=== PATIENT | female | born 1975 | race Caucasian/White ===

== ENCOUNTER 2017-02-01 14:31 | Emergency (ER) | payer MEDICAID, OTHER ==
[2017-02-01 14:39] VITALS: TEMP 97.7
[2017-02-01] MEDS ORDERED: traMADol 50 MG TAB PO ONE (14:55)
[2017-02-01] MEDS ORDERED: NS 1,000 ML IV ONE (14:55)
--- NOTE | 2017-02-01 15:06 | EDPHY ---
H & P Time Seen by Provider: 02/01/17 14:46 HPI/ROS: HPI: Lyla Mayen is a 41 yrs, female who presents with Chief Complaint: rectal bleeding Location: rectal Quality: bleeding Duration: starting at 0900 Signs and Symptoms: no fever, no chills, no N/V, no recent antibiotic usage, no concern for food born illness, + mild cramping bilateral lower abdominal pain, no hemorrhoids, no anorexia, no vaginal bleeding, no dysuria Timing: sudden, intermittent, ahs occurred 3 times total since 0900; last bloody stool occurrence at 1400 Severity: moderate Context: generally healthy. s/p . on depo-provera; last injection beginning of January. takes ibuprofen 800 mg TID for chronic knee pain. mother has history of diverticulitis. Modifying Factors: did not call PCP REVIEW OF SYSTEMS: Constitutional: No fever Eyes: No blurred vision Respiratory: No shortness of breath, no cough Cardiovascular: No chest pain Gastrointestinal: No nausea, no vomiting, + diarrhea Genitourinary: No dysuria Extremities: No myalgias Neurologic: No weakness, no numbness Skin: No rashes Hematologic: No bruising, + bleeding MEDICAL HISTORY: generally healthy SURGICAL HISTORY Smoking Status: Never smoked Physical Exam: CONSTITUTIONAL: anxious middle aged white female, non-toxic in appearance, awake and alert, mild distress HEENT: Atraumatic and normocephalic, PERRL, EOMI. Tympanic membranes clear. . Oropharynx clear, no exudate and moist pink mucosa. Airway patent. No lymphadenopathy. No meningismus. Cardiovascular: Normal S1/S2, regular rate, regular rhythm, without murmur rub or gallop. PULMONARY/CHEST: Symmetrical and nontender. Clear to auscultation bilaterally Good air movement. No accessory muscle usage. ABDOMEN: Soft, nondistended, mild bilateral non-focal abdominal tenderness, no rebound, no guarding, no peritoneal signs, no masses or organomegaly. No CVAT. RECTAL: good sphincter tone, no masses, soft stool in rectal vault PELVIC: normal external genitalia, normal cervix, cervical os was closed, no cervical motion tenderness, no adnexal mass, no discharge, no bleeding. The exam was performed with a ediphone operator. EXTREMITIES: 2/2 pulses, no deformities, no clubbing, no cyanosis or edema. NEUROLOGICAL: no focal neuro deficits. GCS 15. SKIN: Warm and dry, no erythema. no rash. Good capillary refill. Constitutional: Initial Vital Signs Temperature (C) 36.5 C 02/01/17 14:37 Heart Rate 61 02/01/17 14:37 Respiratory Rate 17 02/01/17 14:37 Blood Pressure 128/76 H 02/01/17 14:37 O2 Sat (%) 98 02/01/17 14:37 O2 Delivery Mode Room Air Allergies/Adverse Reactions: Penicillins Allergy (Verified 02/01/17 14:37) Rash Home Medications: Medication Instructions Recorded Buspar (*) 02/01/17 Zoloft 100mg (*) 02/01/17 Medical Decision Making - Diagnostics Imaging Results: Imaging Impressions Abdomen CT 02/01/17 14:56 Impression: 1. Abnormally enlarged and possibly necrotic cervix. Recommend pelvic sonogram and specular exam. 2. No evidence for bowel obstruction or CT evidence of colitis. 3. Possible evidence for cholecystitis. Consider gallbladder ultrasound after an appropriate fast. Results discussed with Shagufta Patel 17:06 PM. General information for patients regarding this examination can be found at [email or web address]. If you have questions or comments about this report, please contact me at (hospital) or [phone] (cell). Pelvic/Renal Ultrasound 02/01/17 17:17 Impression: 1. Anteverted uterus which has myometrial heterogeneity but no discrete fibroid identified. 2. Mild thickening and heterogeneity of the endometrium measuring 8.8 mm. If there is further concern, hysterosonography could be considered. 3. There is a simple-appearing 2.1 cm right ovarian cyst, with no evidence of torsion or free fluid. 4. Gynecologic consultation is suggested to further evaluate the abnormal appearance of the cervix seen on CT imaging. Findings were discussed with Katia Patel PA-C at 19:29, on 02/01/2017. ED Course/Re-evaluation: labs, IVF, oral medication, CT A/P scan, stool guaiac afebrile. no systemic signs. doubt infectious process. H/H stable LFTs normal Complete resolution of pain with Tramadol 4:00 PM patient called nurse and asking to go home as "she made a big deal out of nothing." I personally discussed with patient risk/benefit of staying for CT scan and she is now agreeable. 5:15 PM called by radiologist: CT scan shows no SBO/colitis/diverticulitis. + cervical/uterus mass 4.8cm x 4.8 cm. ? GB wall thickening; no RUQ pain; if N/V? RUQ pain; recommend RUQ US outpatient to patient. Pelvic US ordered, Pelvic exam with wet prep and GC collected. patient reports last pelvic exam at [place] 1 year ago. US shows simple right ovarian cyst, no ovarian torsion, no ovarian fluid, no fibroid, endometrial strip 8.8 needs GEOPHYSICAL OBSERVER pap smear and follow up Differential Diagnosis: Abdominal pain including but not limited to diverticulitis, hemorrhoids, enteritis, appendicitis, cholecystitis, gastritis and urinary tract infection. - Data Points Laboratory Results: Laboratory Results 02/01/17 14:59 02/01/17 15:17 02/01/17 02/01/17 02/01/17 17:45 17:45 15:17 WBC RBC Hgb Hct MCV MCH MCHC RDW Plt Count MPV Neut % (Auto) Lymph % (Auto) Noble % (Auto) Eos % (Auto) Baso % (Auto) Nucleat RBC Rel Count Absolute Neuts (auto) Absolute Lymphs (auto) Absolute Monos (auto) Absolute Eos (auto) Absolute Basos (auto) Absolute Nucleated RBC Immature Gran % Immature Gran # Sodium 137 mEq/L mEq/L (134-144) Potassium 4.0 mEq/L mEq/L (3.5-5.2) Chloride 105 mEq/L mEq/L (97-110) Carbon Dioxide 20 mEq/l L mEq/l (22-31) Anion Gap 12 mEq/L mEq/L (8-16) BUN 8 mg/dL mg/dL (7-23) Creatinine 0.8 mg/dL mg/dL (0.6-1.0) Estimated GFR > 60 Glucose 87 mg/dL mg/dL (70-100) Calcium 9.6 mg/dL mg/dL (8.5-10.4) Total Bilirubin 0.5 mg/dL mg/dL (0.1-1.4) Conjugated Bilirubin 0.4 mg/dL mg/dL (0.0-0.5) Unconjugated Bilirubin 0.1 mg/dL mg/dL (0.0-1.1) AST 18 IU/L IU/L (14-46) ALT 28 IU/L IU/L (9-52) Alkaline Phosphatase 55 IU/L IU/L (38-126) Total Protein 6.8 g/dL g/dL (6.3-8.2) Albumin 4.4 g/dL g/dL (3.5-5.0) Lipase 185.0 IU/L IU/L (23-300) Stool Occult Bld Scrn Trichomonas (Wet Prep) NO YEAST Oma species DNA Pending C.trachomatis RNA (TMA) Pending Gardnerella DNA Probe Pending N.gonorrhoeae RNA (TMA) Pending Trichomonas DNA Probe Pending 02/01/17 02/01/17 14:59 14:55 WBC 6.84 10^3/uL 10^3/uL (3.80-9.50) RBC 4.33 10^6/uL 10^6/uL (4.18-5.33) Hgb 13.4 g/dL g/dL (12.6-16.3) Hct 38.6 % % (38.0-47.0) MCV 89.1 fL fL (81.5-99.8) MCH 30.9 pg pg (27.9-34.1) MCHC 34.7 g/dL g/dL (32.4-36.7) RDW 12.1 % % (11.5-15.2) Plt Count 305 10^3/uL 10^3/uL (150-400) MPV 9.9 fL fL (8.7-11.7) Neut % (Auto) 38.1 % L % (39.3-74.2) Lymph % (Auto) 48.0 % H % (15.0-45.0) Noble % (Auto) 9.4 % % (4.5-13.0) Eos % (Auto) 3.5 % % (0.6-7.6) Baso % (Auto) 0.7 % % (0.3-1.7) Nucleat RBC Rel Count 0.0 % % (0.0-0.2) Absolute Neuts (auto) 2.61 10^3/uL 10^3/uL (1.70-6.50) Absolute Lymphs (auto) 3.28 10^3/uL H 10^3/uL (1.00-3.00) Absolute Monos (auto) 0.64 10^3/uL 10^3/uL (0.30-0.80) Absolute Eos (auto) 0.24 10^3/uL 10^3/uL (0.03-0.40) Absolute Basos (auto) 0.05 10^3/uL 10^3/uL (0.02-0.10) Absolute Nucleated RBC 0.00 10^3/uL 10^3/uL (0-0.01) Immature Gran % 0.3 % % (0.0-1.1) Immature Gran # 0.02 10^3/uL 10^3/uL (0.00-0.10) Sodium Potassium Chloride Carbon Dioxide Anion Gap BUN Creatinine Estimated GFR Glucose Calcium Total Bilirubin Conjugated Bilirubin Unconjugated Bilirubin AST ALT Alkaline Phosphatase Total Protein Albumin Lipase Stool Occult Bld Scrn NEGATIVE (NEGATIVE) Trichomonas (Wet Prep) Oma species DNA C.trachomatis RNA (TMA) Gardnerella DNA Probe N.gonorrhoeae RNA (TMA) Trichomonas DNA Probe Medications Given: Discontinued Medications Sodium Chloride (Ns) 1,000 mls @ 0 mls/hr IV ONCE ONE; Wide Open PRN Reason: Protocol Stop: 02/01/17 14:56 Last Admin: 02/01/17 15:11 Dose: 1,000 mls Tramadol HCl (Ultram) 50 mg PO EDNOW ONE Stop: 02/01/17 14:56 Last Admin: 02/01/17 15:11 Dose: 50 mg Departure - Departure Disposition: Home, Routine, Self-Care Clinical Impression: Ovarian cyst, Endometrial thickening on ultra sound Condition: Good Instructions: Ovarian Cyst (ED) Additional Instructions: Needs GEOPHYSICAL OBSERVER follow up and a pap smear in 1-2 weeks. Referrals: NONE *PRIMARY CARE P,. [Primary Care Provider] - As per Instructions Sammie Conley MD [Medical Doctor] - As per Instructions
[2017-02-01 15:20] LABS: % IMMATURE GRANULYOCYTES 0.3 % (0.0-1.1); ABSOLUTE IMMATURE GRANULOCYTES 0.02 10^3/uL (0.00-0.10); ADD DIFF? NO; ADD MORPH? NO; ADD SCAN? NO; ATYPICAL LYMPHOCYTE FLAG 20 (0-99); FRAGMENT RBC FLAG 0 (0-99); HEMATOCRIT 38.6 % (38.0-47.0); HEMOGLOBIN 13.4 g/dL (12.6-16.3); LEFT SHIFT FLG 0 (0-99); LIPEMIA HEMOLYSIS FLAG 90 (0-99); MEAN CELL HEMOGLOBIN 30.9 pg (27.9-34.1); MEAN CELL HEMOGLOBIN CONCENTR. 34.7 g/dL (32.4-36.7); MEAN CELL VOLUME 89.1 fL (81.5-99.8); MEAN PLATELET VOLUME 9.9 fL (8.7-11.7); PLATELET CLUMPS FLAG 30 (0-99); PLATELET COUNT 305 10^3/uL (150-400); RED BLOOD CELL COUNT 4.33 10^6/uL (4.18-5.33); RED CELL DISTRIBUTION WIDTH 12.1 % (11.5-15.2)
[2017-02-01 15:49] LABS: ALANINE AMINOTRANSFERASE 28 IU/L (9-52); ALBUMIN 4.4 g/dL (3.5-5.0); ALKALINE PHOSPHATASE 55 IU/L (38-126); ANION GAP 12 mEq/L (8-16); ASPARTATE AMINOTRANSFERASE 18 IU/L (14-46); BILIRUBIN,TOTAL 0.5 mg/dL (0.1-1.4); BILIRUBIN-CONJUGATED 0.4 mg/dL (0.0-0.5); BILIRUBIN-UNCONJUGATED 0.1 mg/dL (0.0-1.1); CALCIUM 9.6 mg/dL (8.5-10.4); CARBON DIOXIDE 20 mEq/l (22-31); CHLORIDE 105 mEq/L (97-110); CREATININE 0.8 mg/dL (0.6-1.0); GLOMERULAR FILTRATION RATE > 60; GLUCOSE 87 mg/dL (70-100); SODIUM 137 mEq/L (134-144); TOTAL PROTEIN 6.8 g/dL (6.3-8.2)
[2017-02-01] MEDS ORDERED: IOPAMIDOL (ISOVUE-300) 100 ML BTL ONE ×2 (15:55→16:10)
[2017-02-01 18:14] VITALS: RESP 18
[2017-02-01 19:48] VITALS: BP 136/86; PULSE 82; O2SAT 94
== END 2017-02-01 19:47 | disposition home or self-care (01) ==
DX: N83.201 Unspecified ovarian cyst, right side (principal); R93.8 Abnormal findings on diagnostic imaging of other specified body structures; E86.9 Volume depletion, unspecified
CPT/HCPCS: Q9967